=== PATIENT | female | born 1965 | race Caucasian/White ===

== ENCOUNTER 2018-02-01 09:28 | Emergency (ER) | payer OTHER, BC ==
[~2018-02-01 09:28] MED LIST: LYRICA75 MG PO; SUBOXONE
[2018-02-01 09:58] LABS: BASOPHIL (%) 0.9 % (0-1); BASOPHIL COUNT 0.1 K/uL (0-0.1); EOSINOPHIL COUNT 0.6 K/uL (0-0.3); HEMATOCRIT 39.1 % (36.0-46.0); HEMOGLOBIN 13.5 G/DL (11.9-15.5); IMMATURE GRANULOCYTE (%) 0.2 % (0.0-0.7); LYMPHOCYTE (%) 44.6 % (15-42); LYMPHOCYTE COUNT 2.6 K/uL (1.0-2.8); MCH 28.7 PG (29.0-34.0); MCHC 34.5 G/DL (30.0-36.0); MCV 83.2 FL (83-99); MONOCYTE (%) 8.6 % (3-12); MONOCYTE COUNT 0.5 K/uL (0-0.8); NEUTROPHIL (%) 34.7 % (45-76); PLATELET COUNT 329 K/uL (156-360); RBC DIS.WIDTH-CV 13.7 % (11.8-14.6); RBC DIS.WIDTH-SD 41.7 % (39-53); WHITE BLOOD COUNT 5.7 K/uL (4.1-10.2)
[2018-02-01 10:09] LABS: AMYLASE 42 IU/L (1-118); CHLORIDE 111 mEq/L (99-109); POTASSIUM 3.6 mEq/L (3.7-5.4); SODIUM 144 mEq/L (136-147)
[2018-02-01 10:10] LABS: GLUCOSE 101 mg/dL (70-99)
[2018-02-01 10:14] LABS: CREATININE 0.7 mg/dL (0.6-1.3); GFR ESTIMATE (CALCULATED) > 59 mL/min/; SERUM ETHYL ALCOHOL < 10 mg/dL
[2018-02-01 10:15] LABS: UREA NITROGEN (BUN) 13 mg/dL (9-23)
[2018-02-01 10:17] LABS: LIPASE 14 U/L (1.0-51.0)
[2018-02-01 10:23] LABS: QUANTITATIVE HCG < 4.0 MIU/ML
== END 2018-02-01 10:54 | disposition home or self-care (01) ==
LOC: TRA 09:28
PROVIDERS: Emergency Medicine
DX: S13.9XXA Sprain of joints and ligaments of unspecified parts of neck, initial encounter (principal); S40.012A Contusion of left shoulder, initial encounter; V49.40XA Driver injured in collision with unspecified motor vehicles in traffic accident, initial encounter; Z98.1 Arthrodesis status
CPT/HCPCS: 70450; 71045; 72125; 73030; 80048; 81003; 82150; 83690; 84702; 85025; 86850; 86900; 86901; 99281; 99284; G0480

== ENCOUNTER 2018-02-02 21:33 | Emergency (ER) | payer OTHER, BC ==
[~2018-02-02] VITALS: Ht 154.9 cm; Wt 63.7 kg
[2018-02-03 00:05] VITALS: BP 134/86
== END 2018-02-03 00:10 | disposition home or self-care (01) ==
LOC: EME 21:33
DX: S16.1XXA Strain of muscle, fascia and tendon at neck level, initial encounter (principal); R13.10 Dysphagia, unspecified; V49.49XA Driver injured in collision with other motor vehicles in traffic accident, initial encounter; Y92.410 Unspecified street and highway as the place of occurrence of the external cause; K21.9 Gastro-esophageal reflux disease without esophagitis; J44.9 Chronic obstructive pulmonary disease, unspecified; F17.200 Nicotine dependence, unspecified, uncomplicated; Z98.1 Arthrodesis status
CPT/HCPCS: 71046; 72040; 99281; 99284